=== PATIENT | female | born 1935 | race Two or more races ===

== ENCOUNTER 2021-05-25 10:07 | Emergency (ER) | payer OTHER ==
[~2021-05-25] VITALS: Ht 162.6 cm; Wt 73.5 kg
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
[2021-05-25] MEDS ORDERED: HYDROCODONE/APAP 5/325MG TABLET PO ONE (10:30)
--- NOTE | 2021-05-25 10:35 | NUR ---
PT IS WHEELED TO RADIOLOGY.
[2021-05-25] MEDS ORDERED: IBUPROFEN 400 MG TABLET ONE (11:08)
[2021-05-25 11:25] VITALS: BP 140/71
[2021-05-25] MEDS ORDERED: IBUPROFEN 400 MG TABLET PO ONE (11:30)
== END 2021-05-25 11:25 | disposition home or self-care (01) ==
LOC: ER 10:12
DX: M54.5 Low back pain (principal); I10 Essential (primary) hypertension; V49.49XA Driver injured in collision with other motor vehicles in traffic accident, initial encounter; Y93.89 Activity, other specified; Y92.413 State road as the place of occurrence of the external cause; Y99.8 Other external cause status
CPT/HCPCS: 72110-TC